=== PATIENT | female | born 1990 | race Caucasian/White ===

== ENCOUNTER 2024-11-21 03:41 | Inpatient (IN) | payer OTHER ==
[2024-11-21] MEDS ORDERED: Methylergonovine 0.2 MG/ML VIAL IM PRN (04:15)
[2024-11-21] MEDS ORDERED: Diphenoxylate HCl/Atropine Tablet PO PRN ×2 (04:15)
[2024-11-21] MEDS ORDERED: Acetaminophen 500 MG TAB PO PRN (04:15)
[2024-11-21] MEDS ORDERED: Carboprost 250 MCG/ML AMP IM PRN (04:15)
[2024-11-21] MEDS ORDERED: Tranexamic Acid 1,000 MG/10 ML VIAL IVP PRN (04:15)
[2024-11-21] MEDS ORDERED: hydrALAZINE 20 MG/ML VIAL SLOW IVP PRN ×2 (04:15→13:37)
[2024-11-21] MEDS ORDERED: Oxytocin 30 units/NS 500 ML 500 ML IV SCH ×2 (04:15→13:37)
[2024-11-21] MEDS ORDERED: Lidocaine 1% (PF) 30 ML VIAL SC PRN (04:15)
[2024-11-21] MEDS ORDERED: Ondansetron PF 4 MG/2 ML Vial IVP PRN ×2 (04:15→05:59)
[2024-11-21] MEDS: Penicillin G Potassium 5 MILL.UNITS in Sodium Chloride 0.9% 100 ML IVPB SCH (04:24)
[2024-11-21 05:02] VITALS: BMI 24.3
[2024-11-21 05:06] LABS: Hematocrit 33.2 % (34.9-44.5); Hemoglobin 11.2 g/dL (12.0-15.5); Mean Corpuscular Hemoglobin 31.0 pg (27.0-33.0); Mean Corpuscular Volume 92.0 fL (81.6-98.3); Platelet Count 179 10x3/uL (150-450); Red Blood Cell (RBC) Count 3.61 10x6/uL (3.90-5.03); White Blood Cell (WBC) Count 9.50 10x3/uL (3.5-10.5)
[2024-11-21 05:19] LABS: Syphilis Antibody Index 0.05 S/CO (<1.00 Non-Reactive)
[2024-11-21 05:20] LABS: Hep B Surf Ag - L&D Non-Reactive S/CO (NonReactive)
[2024-11-21] MEDS: fentaNYL/Ropivacaine Epidural 100 ML ONE (05:56)
[2024-11-21] MEDS ORDERED: Acetaminophen 325 MG TAB PO PRN (05:59)
[2024-11-21] MEDS ORDERED: diphenhydrAMINE 50 MG/ML VIAL IVP PRN (05:59)
[2024-11-21] MEDS: Penicillin G Potassium 5 MILL.UNITS VIAL ONE (05:59)
[2024-11-21] MEDS ORDERED: Communication Order-Pharmacy FS SCH (06:00)
[2024-11-21] MEDS ORDERED: fentaNYL 2 mcg/Ropivacaine 0.2% Epidural 100 ML CADD EPIDURAL SCH (06:00)
[2024-11-21] MEDS: Penicillin G 2.5 MILL.units 2.5 MILL.UNITS in Premix 1 BAG IVPB SCH (08:20)
[2024-11-21] MEDS: Ibuprofen 800 MG TAB PO PRN (12:02)
[2024-11-21] MEDS ORDERED: HYDROcodone/Acetaminophen 5/325 mg Tablet PO PRN ×2 (13:37)
[2024-11-21] MEDS ORDERED: Bisacodyl 10 MG SUPP PR PRN (13:37)
[2024-11-21] MEDS ORDERED: Benzocaine-Menthol 82.5 ML CAN TOP PRN (13:37)
[2024-11-21] MEDS ORDERED: Milk Of Magnesia 30 ML UDCUP PO PRN (13:37)
[2024-11-21] MEDS: Erythromycin Base 0.5% Oint 1 GM TUBE ONE (13:40)
[2024-11-21] MEDS: Hepatitis B Vaccine 10 MCG/0.5 ML SYR ONE (13:40)
[2024-11-21] MEDS: Boostrix 0.5 ML (Tdap) VIAL (>/=7 yrs of age) IM ONE (14:25)
[2024-11-21] MEDS: Ferrous Sulfate 325 MG TAB PO SCH (14:26)
[2024-11-21] MEDS: Ibuprofen 800 MG TAB PO SCH (19:59)
[2024-11-22 08:22] VITALS: BP 111/72; TEMP 97.8
[2024-11-22] MEDS: Ibuprofen 800 MG TAB PO SCH (12:30)
== END 2024-11-22 12:55 | disposition home or self-care (01) | DRG 807 ==
LOC: CSHLD/OP 03:41 → CSHLD 04:39 → CSHPED 12:00
PROVIDERS: ADMIT Obstetrics & Gynecology; ATTEND Obstetrics & Gynecology
PROC: 10E0XZZ Delivery of Products of Conception, External Approach (ICD-10-PCS; principal; 2024-11-21)
PROC: 3E03329 Introduction of Other Anti-infective into Peripheral Vein, Percutaneous Approach (ICD-10-PCS; 2024-11-21)
DX: O42.02 Full-term premature rupture of membranes, onset of labor within 24 hours of rupture (principal); Z37.0 Single live birth; Z3A.38 38 weeks gestation of pregnancy; O99.824 Streptococcus B carrier state complicating childbirth
CPT/HCPCS: 36415; 51702; 85027; 86780; 86850; 86900; 86901; 87340; 99285; J2540; J7120